=== PATIENT | female | born 1985 | race Caucasian/White ===

== ENCOUNTER 2017-04-27 18:52 | Emergency (ER) | payer MEDICAID, MEDICARE ==
[~2017-04-27] VITALS: Ht 167.6 cm; Wt 66.2 kg
[2017-04-27 19:12] VITALS: BP 128/90
[2017-04-27] MEDS ORDERED: ALBUTEROL SULFATE 2.5 MG/3 ML ONE ×2 (19:28→19:29)
[2017-04-27] MEDS: ALBUTEROL SULFATE 2.5 MG/3 ML NPPB SCH ×2 (19:28→20:08)
== END 2017-04-27 20:25 | disposition home or self-care (01) ==
LOC: ED 20:20
DX: J20.8 Acute bronchitis due to other specified organisms (principal); R05 Cough
CPT/HCPCS: 71020; 93005; 94640; 99284; J7613

== ENCOUNTER 2017-05-04 10:00 | Emergency (ER) | payer MEDICAID ==
[~2017-05-04] VITALS: Ht 165.1 cm; Wt 66.0 kg
[2017-05-04 10:01] VITALS: BP 156/102
== END 2017-05-04 11:42 | disposition home or self-care (01) ==
LOC: ED 11:30
DX: B86 Scabies (principal); R21 Rash and other nonspecific skin eruption
CPT/HCPCS: 99283